=== PATIENT | male | born 1960 | race Caucasian/White ===

== ENCOUNTER 2019-12-27 15:23 | Emergency (ER) | payer SELFPAY ==
[~2019-12-27] VITALS: Ht 172.7 cm; Wt 68.0 kg
[2019-12-27 15:31] VITALS: BP 129/84
--- NOTE | 2019-12-27 15:31 | NUR ---
ED Nurse Note: Patient BIBA d/t being found unconscious in a parking lot. Per EMS, patient was given 6mg total of Narcan intranasally and became AxO x 4. Patient currently AxO x 4, VSS. Patient stating he wants to leave AMA, Dr. Lynch at bedside, explained risks and benefits of leaving AMA x 3, patient continued to state his desire to leave. Patient and Dr. Lynch signed AMA form, witnessed by RN.
--- NOTE | 2019-12-27 15:33 | Emergency Room Report ---
History of Present Illness General Chief Complaint: Overdose Source: Patient Present Illness HPI 59-year-old male possible overdose on some opioid derivative just prior to arrival was found in a parking lot tachycardic unresponsive hypoxic requiring multiple doses of Narcan by EMS which caused him to wake up patient's overdose was aggravated by some narcotic alleviating factors Narcan severity was severe unknown exact start time however is symptoms were prior to arrival severity was severe patient presents for evaluation Allergies: Coded Allergies: No Known Allergies (Unverified , 12/27/19) Patient History Past Medical History: see triage record Social History: Reports: smoking, alcohol use, drug use - Polysubstance use Reviewed Nursing Documentation: PMH: Agreed; PSxH: Agreed Nursing Documentation-PMH Past Medical History: No Stated History Review of Systems All Other Systems: negative except mentioned in HPI Physical Exam Vital Signs Date Time Temp Pulse Resp B/P (MAP) Pulse Ox O2 Delivery O2 Flow Rate FiO2 12/27/19 15:16 98.1 99 16 129/84 (99) 98 Room Air Sp02 EP Interpretation: reviewed, normal General Appearance: well appearing, no apparent distress, alert Head: normocephalic, atraumatic Eyes: bilateral eye PERRL, bilateral eye EOMI ENT: uvula midline, moist mucus membranes Neck: supple, thyroid normal, supple/symm/no masses Respiratory: lungs clear, no respiratory distress, no retraction, no accessory muscle use Cardiovascular #1: normal peripheral pulses, regular rate, rhythm, no edema, no gallop, no murmur Gastrointestinal: non tender, soft, no guarding, no rebound Musculoskeletal: normal inspection Neurologic: alert, oriented x3 Psychiatric: mood/affect normal Skin: no rash, warm/dry Medical Decision Making Diagnostic Impression: Primary Impression: Drug overdose Qualified Codes: T50.901A - Poisoning by unspecified drugs, medicaments and biological substances, accidental (unintentional), initial encounter ER Course 59-year-old male presents with possible opioid overdose Patient is currently at baseline reevaluation at 3:32 PM patient wants to leave AGAINST MEDICAL ADVICE states he feels fine does not want to wait for continued observation. The patient has requested to leave the ED against medical advice. The patient reason(s) for leaving include, but are not limited to, the following: I don't want to wait. I believe this patient is of sound mind and competent to refuse medical care. The patient is responding and asking questions appropriately. The patient is oriented to person, place and time. The patient is not psychotic, delusional, suicidal, homicidal or hallucinating. The patient demonstrates a normal mental capacity to make decisions regarding their healthcare. The patient is clinically sober and does not appear to be under the influence of any illicit drugs at this time. The patient has been advised of the risks, in layman terms, of leaving AMA which include, but are not limited to , coma, permanent disability, loss of current lifestyle, delay in diagnosis. Alternatives have been offered - the patient remains steadfast in their wish to leave. The patient has been advised that should they change their mind they are welcome to return to this hospital, or any other, at any time. The patient understands that in no way does an AMA discharge mean that I do not want them to have the best medical care available. To this end, I have provided appropriate prescriptions, referrals, and discharge instructions. The patient did sign AMA paperwork. The above discussion was witnessed by another member of staff. Last Vital Signs Date Time Temp Pulse Resp B/P (MAP) Pulse Ox O2 Delivery O2 Flow Rate FiO2 12/27/19 15:16 98.1 99 16 129/84 (99) 98 Room Air Disposition: AGAINST MEDICAL ADVICE Condition: Stable Patient Instructions: Opioid Use Disorder Additional Instructions: The patient was provided with discharge instructions, notified to follow-up with a primary care doctor and or specialist in the next 24-48 hours, and to return to the ED if they have worsening of their symptoms. Please note that this report is being documented using [employer] technology. This can lead to erroneous entry secondary to incorrect interpretation by the dictating instrument. Manpreet Lynch MD Dec 27, 2019 15:33
== END 2019-12-27 15:31 | disposition left against medical advice (07) ==
LOC: EDBD 15:23 → EMR 15:31
DX: T40.2X1A Poisoning by other opioids, accidental (unintentional), initial encounter (principal); F17.200 Nicotine dependence, unspecified, uncomplicated; Y92.481 Parking lot as the place of occurrence of the external cause; Z72.89 Other problems related to lifestyle; Z53.29 Procedure and treatment not carried out because of patient's decision for other reasons
CPT/HCPCS: 99283